=== PATIENT | female | born 1930 | race Caucasian/White ===

== ENCOUNTER → 2018-12-24 | Outpatient (CLI) | payer MEDICARE ==
[2018-12-24 16:19] LABS: Follicle Stimulating Hormone 7.9 mIU/mL; Luteinizing Hormone 1.7 mIU/mL
[2018-12-24 16:21] LABS: Prolactin 78.5 ng/mL (2.8-29.2)
[2018-12-24 17:42] LABS: T4, Free (Free Thyroxine) 0.8 ng/dL (0.80-1.80)
[2018-12-24 21:22] LABS: ACTH 30.4 pg/mL (0.00-45.99)
== END ==
LOC: LABWHC1 10:38
PROVIDERS: ATTEND Internal Medicine Endocrinology, Diabetes & Metabolism
DX: D35.2 Benign neoplasm of pituitary gland (principal)
CPT/HCPCS: 36415; 82024; 82533; 83001; 83002; 84146; 84439; 84443; 84480